=== PATIENT | female | born 2005 | race Two or more races ===

== ENCOUNTER 2024-05-30 22:36 | Emergency (ER) | payer MEDICAID, SELFPAY ==
[2024-05-30 22:47] VITALS: BP 122/75; PULSE 76; RESP 16; TEMP 36.5; O2SAT 96; BMI 16.1
--- NOTE | 2024-05-30 23:04 | EDNOTE_ITS ---
ED Allergic Reaction RME/HPI General Chief complaint: Skin/Abscess/Foreign Body Stated complaint: Rash all over body Time Seen by Provider: 05/30/24 22:56 Arrival date/time: 05/30/24 22:36 19F with no significant PMH presents to ED with 2 days of intermittent generalized itching. Patient denies recent travel, new meds, hygiene products, food, SOB, and throat sweling. Paitent also denies URI symptoms and rash. Benadryl helped. Limitations: no limitations Related Data Previous Rx's ?Medication ?Instructions ?Recorded ondansetron HCl 4 mg tablet 4 mg PO Q6H PRN nausea and 08/23/20 (Zofran) vomiting #30 tabs ibuprofen 400 mg tablet 400 mg PO TID PRN fever or p ain 05/03/23 #30 tabs Allergies Allergy/AdvReac Type Severity Reaction Status Date / Time No Known Allergies Allergy Verified 05/03/23 02:44 Review of Systems Review of Systems Systems Reviewed: All systems reviewed, normal except as documented Constitutional Constitutional: Reports system reviewed and no additional complaints, except as documented, Denies fever(s) and Denies headache(s) ENT Ears, Nose, Mouth, and Throat: Denies disequilibrium and Denies headache(s) Cardiovascular Cardiovascular: Reports system reviewed and no additional complaints, except as documented, Denies chest pain and Denies dyspnea Respiratory Respiratory: Reports system reviewed and no additional complaints, except as documented, Denies cough and Denies dyspnea Gastrointestinal Gastrointestinal: Reports system reviewed and no additional complaints, except as documented, Denies abdominal pain, Denies nausea and Denies vomiting Integumentary/Breasts Skin/Breast: Reports as per HPI and Reports pruritus Neurologic Neurologic: Reports system reviewed and no additional complaints, except as documented, Denies confusion, Denies disequilibrium and Denies headache(s) Psychiatric Psychiatric: Denies confusion Past Medical History Past Medical History CARDIAC: Negative Congestive Heart Failure RESPIRATORY: Negative Chronic Obstructive Pulmonary Disease (COPD) GENITOURINARY: Negative Renal Disease ENDOCRINE: Negative Diabetes Mellitus Type 1 or Diabetes Mellitus Type 2 Social History SMOKING STATUS: Never smoker ED Exam General Limitations: Present no limitations General appearance: Present alert and in no apparent distress Head Head exam: Present atraumatic Eye Eye exam: Present normal appearance, PERRL and EOMI ENT ENT exam: Present normal exam, normal oropharynx and mucous membranes moist Neck Neck exam: Present normal inspection, full ROM and trachea midline Chest Chest inspection: Present normal inspection and symmetric chest wall rise Respiratory Respiratory exam: Present normal lung sounds bilaterally Cardiovascular Cardiovascular exam: Present regular rate, normal rhythm and normal heart sounds Abdominal Exam Abdominal exam: Present soft and normal bowel sounds Extremities Exam Extremities exam: Present normal inspection and full ROM Back Exam Back exam: Present normal inspection and full ROM Neurological Exam Neurological exam: Present alert, oriented X3 and CN II-XII intact Psychiatric Psychiatric exam: Present normal affect and normal mood Skin Skin exam: Present warm, dry, intact and normal color Course Quality Measures none Orders Category Date Time Status Dexamethasone Inj [Decadron Inj] Med 05/30/24 22:57 Discontinued 10 mg PO X1 ONE Famotidine [Pepcid] Med 05/30/24 22:57 Discontinued 40 mg PO X1 ONE Vital Signs Vital signs: Vital Signs Temperature 97.7 F 05/30/24 22:47 Pulse Rate 76 05/30/24 22:47 Respiratory Rate 16 05/30/24 22:47 Blood Pressure 122/75 05/30/24 22:47 Pulse Oximetry (%) 96 05/30/24 22:47 Oxygen Delivery Method Room Air 05/30/24 22:47 O2 at 96% on RA and WNLs Allergic Reaction MDM Narrative MDM Narrative:: 19F with no significant PMH presents to ED with 2 days of intermittent generalized itching. Patient denies recent travel, new meds, hygiene products, food, SOB, and throat sweling. Paitent also denies URI symptoms and rash. Benadryl helped. Physical exam reveals no rash or swelling on skin. Clear ENT and lungs. No jaundice. Patient is afebrile, calm, and alert. Meds and licensed mental health counselor given. Patient data External records reviewed:: [facility] previous records Clinical information provided by:: patient Social determinants that could affect healthcare access:: none Patient has the following chronic illnesses:: none How is presenting disease/condition affected by chronic disease/condition?: no chronic disease Evaluation data The following diagnostics were reviewed and interpreted by me:: other (specify) (none) Lab and/or radiology exams considered but not ordered:: not ordered Interpretation Summary: n/a Medications / Prescriptions Medications or Prescriptions considered but not ordered:: ordered Medication administrations:: Medication Administration History Discontinued Medications Dexamethasone Sodium Phosphate (Dexamethasone Sod Phos Inj 10 Mg/Ml Vial) 10 mg PO X1 ONE Stop: 05/30/24 22:58 Famotidine (Famotidine 20 Mg Tablet) 40 mg PO X1 ONE Stop: 05/30/24 22:58 above Consultations Consultation(s) initiated? (list below): No Diagnosis Differential Diagnosis allergic reaction: anaphylaxis, allergic reaction, angioedema, contact dermatitis, adverse reaction to drug, viral enanthem, urticaria and other (itching) Most likely diagnosis given after review of the tests above:: itching Admission Indicated Admission indicated?: not indicated Admission Request Was there a request for admission?: No Disposition Plan Disposition Plan: Discharge Discharge Attestation Discharge Attestation: The patient and all family members were given an opportunity to ask questions and understood the discharge instructions. Discharge instructions specifically effects, indications for sooner follow up or return to the emergency department, and the expected course of current diagnosis. Patient condition: Stable Discharge Plan Plan Patient Disposition: HOME (Self Care) Disposition Comment: Stable Prescriptions/Referrals Prescriptions/Med Rec: No Action ondansetron HCl [Zofran] 4 mg tablet 4 mg PO Q6H PRN (Reason: nausea and vomiting) Qty: 30 0RF ibuprofen 400 mg tablet 400 mg PO TID PRN (Reason: fever or pain) Qty: 30 0RF Problem List Clinical Impression: Itching Patient/Caregiver Discharge Instructions Additional Instructions: Please follow-up with PCP within 24-48 hours and return immediately if symptoms worsen. If problem persists, can see PCP for additional evaluation. Take OTC antihistamine as needed until symptoms resolve. Print Language: Croatian Stand Alone Forms: Patient Portal Info Letter LUCY/PAULIE Supervising Physician SHELDON Supervising Physician: Dr. Joy
[2024-05-30] MEDS: DEXAMETHASONE SOD PHOS INJ 10 MG/ML VIAL PO (23:06)
[2024-05-30] MEDS: FAMOTIDINE 20 MG TABLET 40 MG PO (23:06)
== END 2024-05-30 23:15 | disposition home or self-care (01) ==
LOC: SERX 23:27
PROVIDERS: Emergency Provider Emergency Medicine; PCP Family Medicine
DX: L29.9 Pruritus, unspecified (principal)
CPT/HCPCS: 99282; J1100; A9270